=== PATIENT | female | born 1985 | race Caucasian/White ===

== ENCOUNTER 2024-05-11 00:28 | Emergency (ER) | payer BC ==
[2024-05-11] MEDS ORDERED: Sodium Chloride 0.9% 10 ML Syringe FLUSH PRN (00:43)
[2024-05-11] MEDS: EPINEPHrine 1 MG/ML SDV IM ONE (00:52)
[2024-05-11] MEDS: diphenhydrAMINE 50 MG/ML SDV IVPUSH ONE (00:54)
[2024-05-11] MEDS: Famotidine 20 MG/2 ML SDV IVPUSH ONE (00:54)
[2024-05-11] MEDS: methylPREDNISolone Sodium Succinate 125 MG/2 ML SDV IVPUSH ONE (00:54)
[2024-05-11] MEDS: Ondansetron 4 MG/2 ML SDV IVPUSH ONE (00:55)
[2024-05-11] MEDS: HYDROmorphone 0.5 MG/0.5 ML Syringe IVPUSH ONE (00:55)
[2024-05-11 00:56] LABS: BASOPHILS ABSOLUTE AUTO 0.1 K/mm3 (0.0-0.2); BASOPHILS PERCENT AUTO 0.6 % (0.0-1.0); EOSINOPHILS ABSOLUTE AUTO 0.2 K/mm3 (0.0-0.4); EOSINOPHILS PERCENT AUTO 0.8 % (0.0-6.0); IMMATURE GRAN ABSOLUTE AUTO 0.13 K/mm3 (0.00-0.05); IMMATURE GRAN PERCENT AUTO 0.6 % (0.0-0.4); LYMPHOCYTES ABSOLUTE AUTO 9.2 K/mm3 (1.0-4.8); LYMPHOCYTES PERCENT AUTO 41.1 % (24.0-44.0); MEAN CORPUSCULAR HEMOGLOBIN 28.4 pg (28.0-32.0); MEAN CORPUSCULAR HGB CONC 33.9 g/dl (32.0-36.0); MEAN CORPUSCULAR VOLUME 83.7 fl (83.0-99.0); MEAN PLATELET VOLUME 9.4 fl (9.4-12.3); MONOCYTES ABSOLUTE AUTO 0.7 K/mm3 (0.0-0.8); MONOCYTES PERCENT AUTO 3.3 % (0.0-8.0); NEUTROPHILS ABSOLUTE AUTO 12.1 K/mm3 (1.8-7.7); NEUTROPHILS PERCENT AUTO 53.6 % (41.0-71.0); PLATELET COUNT,PLT 520 K/mm3 (150-400); RED BLOOD CELL COUNT 6.69 M/mm3 (4.10-5.30); WHITE BLOOD CELL COUNT,WBC 22.48 K/mm3 (3.9-11.3)
[2024-05-11] MEDS: Sodium Chloride 0.9% 1,000 ML IV STA (01:07)
[2024-05-11 01:22] LABS: A/G RATIO 0.8 (1-2); ALBUMIN 3.8 g/dl (3.4-5.0); ANION GAP 18.2 (5-15); BILIRUBIN TOTAL 0.3 mg/dL (0.2-1.0); BUN/CREATININE RATIO 7.7 (14-18); CALCIUM 9.4 mg/dL (8.5-10.1); CREATININE 1.3 mg/dL (0.55-1.02); EST CRCL DRUG DOSING (CG) 53.83 mL/min; MAGNESIUM 1.9 mg/dL (1.8-2.4); PROTEIN TOTAL,TP 8.4 g/dl (6.4-8.2)
[2024-05-11 01:25] LABS: POTASSIUM,K 3.2 mEq/L (3.5-5.1)
[2024-05-11 02:17] LABS: APPEARANCE,URINE CLOUDY (Clear); BILIRUBIN,URINE 1+ (Negative); COLOR,URINE YELLOW (Yellow); GLUCOSE,URINE TRACE (Negative); KETONES,URINE TRACE (Negative); LEUKOCYTE ESTERASE,URINE NEGATIVE (Negative); NITRITE,URINE NEGATIVE (Negative); OCCULT BLOOD,URINE 3+ (Negative); PROTEIN,URINE 3+ (Negative); UROBILINOGEN,URINE 0.2 (0.2-1.0)
[2024-05-11] MEDS: Sodium Chloride 0.9% 1,000 ML IV ONE (02:23)
[2024-05-11] MEDS: Iopamidol 612 MG/ML 100 ML Bottle IVPUSH ONE (02:53)
[2024-05-11 03:08] LABS: RBC,URINE 20-30 /hpf (0-5)
[2024-05-11 03:09] LABS: AMORPHOUS SEDIMENT,URINE MODERATE /hpf (NOT SEEN); BACTERIA,URINE MODERATE /hpf (FEW); MUCUS,URINE NOT SEEN /hpf (FEW)
[2024-05-11] MEDS: Lactated Ringers 1,000 ML IV SCH (04:13)
[2024-05-11 04:18] LABS: BASOPHILS PERCENT AUTO 0.2 % (0.0-1.0); EOSINOPHILS ABSOLUTE AUTO 0.2 K/mm3 (0.0-0.4); EOSINOPHILS PERCENT AUTO 0.9 % (0.0-6.0); HEMATOCRIT 45.6 % (37.0-47.0); IMMATURE GRAN PERCENT AUTO 0.5 % (0.0-0.4); LYMPHOCYTES ABSOLUTE AUTO 1.5 K/mm3 (1.0-4.8); LYMPHOCYTES PERCENT AUTO 7.7 % (24.0-44.0); MEAN CORPUSCULAR HEMOGLOBIN 28.9 pg (28.0-32.0); MEAN CORPUSCULAR HGB CONC 34.2 g/dl (32.0-36.0); MEAN CORPUSCULAR VOLUME 84.6 fl (83.0-99.0); MEAN PLATELET VOLUME 9.4 fl (9.4-12.3); MONOCYTES ABSOLUTE AUTO 0.3 K/mm3 (0.0-0.8); MONOCYTES PERCENT AUTO 1.5 % (0.0-8.0); NEUTROPHILS ABSOLUTE AUTO 16.9 K/mm3 (1.8-7.7); NEUTROPHILS PERCENT AUTO 89.2 % (41.0-71.0); RED BLOOD CELL COUNT 5.39 M/mm3 (4.10-5.30); WHITE BLOOD CELL COUNT,WBC 18.92 K/mm3 (3.9-11.3)
[2024-05-11 04:20] LABS: HEMOGLOBIN 15.6 gm/dl (12.0-16.0); PLATELET COUNT,PLT 315 K/mm3 (150-400)
== END 2024-05-11 06:19 | disposition home or self-care (01) ==
LOC: JD.ED 00:28
DX: T78.2XXA Anaphylactic shock, unspecified, initial encounter (principal); Z88.0 Allergy status to penicillin; Z79.52 Long term (current) use of systemic steroids
CPT/HCPCS: 36415; 74176; 74177; 80053; 81001; 83605; 83690; 83735; 84484; 84703; 85025; 87040; 96361; 96372; 96374; 96375; 99284; J0171; J1200; J2405; J2919; J3490; J7030; J7120; Q9967; J1171

== ENCOUNTER 2024-05-19 04:48 | Emergency (ER) | payer BC ==
[2024-05-19] MEDS: Sodium Chloride 0.9% 1,000 ML IV SCH (05:23)
[2024-05-19] MEDS: diphenhydrAMINE 50 MG/ML SDV IVPUSH ONE (05:23)
[2024-05-19] MEDS: Famotidine 20 MG/2 ML SDV IVPUSH ONE (05:24)
[2024-05-19] MEDS: methylPREDNISolone Sodium Succinate 125 MG/2 ML SDV IVPUSH ONE (05:24)
[2024-05-19] MEDS ORDERED: Ondansetron 4 MG/2 ML SDV IVPUSH ONE (05:24)
[2024-05-19] MEDS: Metoclopramide 10 MG/2 ML SDV IVPUSH ONE (05:29)
== END 2024-05-19 06:50 | disposition home or self-care (01) ==
LOC: JD.ED 04:48
DX: T78.40XA Allergy, unspecified, initial encounter (principal); Z88.0 Allergy status to penicillin; X58.XXXA Exposure to other specified factors, initial encounter
CPT/HCPCS: 96361; 96374; 96375; 99283; J1200; J2765; J2919; J3490; J7030